=== PATIENT | male | born 2000 | race Caucasian/White ===

== ENCOUNTER 2022-12-18 08:24 | Emergency (ER) | payer OTHER, SELFPAY ==
[2022-12-18 08:43] VITALS: BP 133/89; PULSE 106; RESP 16; TEMP 37.3; O2SAT 97
--- NOTE | 2022-12-18 09:17 | ED.MALEGU ---
HPI - Male Genitourinary General Chief complaint: Urogenital-Male Stated complaint: genital issue Time Seen by Provider: 12/18/22 09:12 Source: patient and RN notes reviewed Mode of arrival: ambulatory Limitations: no limitations History of Present Illness HPI Narrative: Patient presents today complaining of bilateral testicular pain and swelling x3 days that has been progressively worsening since onset. Denies injury or trauma. Denies urinary symptoms to include dysuria, hematuria, urethral discharge. Denies concerns for sexually transmitted infections. States he has not had intercourse for some time. Currently rates his pain 7/10, which is worse when he sits. He has tried no feqa-rke-htujkni treatment prior to arrival. Related Data Allergies Allergy/AdvReac Type Severity Reaction Status Date / Time No Known Allergies Allergy Verified 12/18/22 08:46 Review of Systems Review of Systems: CONSTITUTIONAL: Denies body aches, fever, chills, or sweats. EYES: Denies visual changes, redness, or discharge. ENT: Denies rhinorrhea, congestion, sore throat, or otalgia. CARDIOVASCULAR: Denies chest pain, palpitations, or edema. RESPIRATORY: Denies cough or dyspnea. GASTROINTESTINAL: Denies abdominal pain, nausea, vomiting, or diarrhea. GENITOURINARY: Denies dysuria or hematuria.+ testicular pain SKIN: Denies rash, itching, or wounds. MUSCULOSKELETAL: Denies back pain, joint pain, or myalgia. NEUROLOGIC: Denies headache, numbness, tingling, or weakness. PSYCH: Denies depression or anxiety. [facility] Past Medical History Medical History (Updated 12/18/22 @ 09:26 by Luna Flores, CLEMENTE, ) Appendicitis Family History Family History Father Depression Hypertension Mother Hypertension Thyroid disease Sibling Depression Hypertension Sibling Depression Sibling No problems noted. Social History Social History Smoking packs per day: 0.5 Smoking cigarettes per day: 10.0 Years smoked: 2 Smoking pack-years: 1.00 Smoking status: Current every day smoker Tobacco type: e-cigarettes/vaping Alcohol intake: current Alcohol use details: socially Substance use: current Substance use type: marijuana Comments Reviewed Exam Narrative: GENERAL: Well-appearing, well-nourished, and in no acute distress. HEAD: Normocephalic, atraumatic. EYES: EOMI. No redness or drainage. Conjunctivae normal. ENT: Mucous membranes pink and moist. NECK: Normal AROM. CHEST: No respiratory distress. : Bilateral testicular tenderness, left greater than right with no swelling appreciated. No penile tenderness, swelling, or discharge noted. No genital lesions or rash noted. EXTREMITIES: Normal range of motion. No edema. SKIN: Warm, dry, no rash. Capillary refill normal. Normal skin turgor. NEURO: No focal deficits. Alert and oriented x3. Gait steady. PSYCH: Normal affect. No signs of depression or anxiety. Course Course Level of Care: Express Care Visit Vital Signs Vital signs: Vital Signs Temperature 99.1 F 12/18/22 08:43 Pulse Rate 106 H 12/18/22 08:43 Respiratory Rate 16 12/18/22 08:43 Blood Pressure 133/89 12/18/22 08:43 Pulse Oximetry 97 12/18/22 08:43 Oxygen Delivery Room Air 12/18/22 08:43 Temperature 99.1 F 12/18/22 08:43 Pulse Rate 106 H 12/18/22 08:43 Respiratory Rate 16 12/18/22 08:43 Blood Pressure 133/89 12/18/22 08:43 Pulse Oximetry 97 12/18/22 08:43 Oxygen Delivery Room Air 12/18/22 08:43 Reviewed Transfer Transfered to: [place] Transportation: Other (Private vehicle) Transfer rationale: Testicular pain Accepting physician: Jc MDM - Male Genitourinary MDM Narrative Medical decision making narrative: Due to patient's testicular tenderness, I feel it indicated to transfer him to the ER for higher l
== END 2022-12-18 09:24 | disposition short-term general hospital (02) ==
PROVIDERS: Emergency Provider Nurse Practitioner; PCP Physician Assistant
DX: N50.812 Left testicular pain (principal); N50.811 Right testicular pain; F17.290 Nicotine dependence, other tobacco product, uncomplicated
CPT/HCPCS: 99212; G0463

== ENCOUNTER 2022-12-18 15:22 | Emergency (ER) | payer OTHER, SELFPAY ==
--- NOTE | ~2022-12-18 | US_ITS ---
US scrotum doppler INDICATION: Bilateral testicular pain for 3 days TECHNIQUE: Testicular sonogram utilizing grayscale and color Doppler FINDINGS: The testes are normal in size and appearance. No focal lesions are seen. The right testes measures 4.4 x 2.5 x 4 cm centimeters, and the left testis measures 4.4 x 2.7 x 3 cm cm. There is inc reased vascularity in both testes. The right and left epididymides appear normal. There is no varicocele or hydrocele. IMPRESSION: 1. Symmetrically increased vascularity in both testes, suspicious for orchitis. Reviewed, dictated and finalized at location B. IMPRESSION: 1. Symmetrically increased vascularity in both testes, suspicious for orchitis .
[2022-12-18 15:53] VITALS: BP 135/88; PULSE 106; RESP 18; TEMP 36.8; O2SAT 100
[2022-12-18 16:55] LABS: Appearance Urine Clear (Clear); Bilirubin Urine Negative (Negative); Blood Urine Negative (Negative); Color Urine Yellow (Yellow); Glucose Urine UA Negative (Negative); Ketones Urine Negative (Negative); Leukocyte Esterase Ur Negative LEU/UL (Negative); Nitrate Urine Negative (Negative); Protein Urine Negative (Negative); Specific Grav Ur 1.011 (1.001-1.035); Urobilinogen Urine 0.2 mg/dL (<2.0)
[2022-12-18 17:15] LABS: Add Urine Microscopic? NO
--- NOTE | 2022-12-18 17:51 | PC.NURSE ---
provider exam with content writer present
--- NOTE | 2022-12-18 18:00 | ED.GENADULT ---
HPI - General Adult General Chief complaint: Urogenital-Male Stated complaint: testicular pain Time Seen by Provider: 12/18/22 15:57 History of Present Illness HPI narrative: 22-year-old male reports for evaluation for bilateral testicular pain and swelling x3 days. Patient describes the pain as a dull ache that is worse with movement and sitting down. He denies penile lesions or discharge, dysuria or hematuria, fever, vomiting, abdominal pain. He denies concern for STDs. Denies parotid swelling, recent mumps exposure. He is UTD on vaccines. Related Data Allergies Allergy/AdvReac Type Severity Reaction Status Date / Time No Known Allergies Allergy Verified 12/18/22 15:55 Review of Systems Review of Systems: CONSTITUTIONAL: Denies fever, chills EYES: Denies visual changes, redness, or discharge. ENT: Denies rhinorrhea, congestion, sore throat, or otalgia. CARDIOVASCULAR: Denies chest pain, palpitations, or edema. RESPIRATORY: Denies cough or dyspnea. GASTROINTESTINAL: Denies abdominal pain, nausea, vomiting, or diarrhea. GENITOURINARY: See HPI SKIN: Denies rash or itching. MUSCULOSKELETAL: Denies back pain, joint pain, or myalgia. NEUROLOGIC: Denies headache, numbness, dizziness, or weakness. PSYCHIATRIC: Denies anxiety or depression. [facility] Past Medical History Medical History (Updated 12/18/22 @ 18:07 by Cherrie Bustamante PA-C) Appendicitis Family History Family History Father Depression Hypertension Mother Hypertension Thyroid disease Sibling Depression Hypertension Sibling Depression Sibling No problems noted. Social History Social History Smoking packs per day: 0.5 Smoking cigarettes per day: 10.0 Years smoked: 2 Smoking pack-years: 1.00 Smoking status: Current every day smoker Tobacco type: e-cigarettes/vaping Alcohol intake: current Alcohol use details: socially Substance use: current Substance use type: marijuana Exam Narrative: GENERAL: Well-appearing, in no acute distress. Patient resting comfortably in exam bed. He is pleasant and conversational. HEAD: Normocephalic NECK: Supple. CHEST: No respiratory distress. Clear to auscultation, no adventitious breath sounds. HEART: Regular rate and rhythm. No murmur heard. Normal peripheral pulses. ABDOMEN: Soft, nontender, normal active bowel sounds : Testicles are low-lying. There is generalized tenderness to bilateral text Stickles and epididymis. No edema or erythema. No penile lesions or discharge. Normal cremasteric reflex bilaterally. EXTREMITIES: Normal range of motion. No edema. SKIN: Warm, dry, no rash. NEURO: No focal deficits. Alert and oriented x3. PSYCH: Normal mood and affect. Course Vital Signs Vital signs: Vital Signs Temperature 98.2 F 12/18/22 15:53 Pulse Rate 106 H 12/18/22 15:53 Respiratory Rate 18 12/18/22 15:53 Blood Pressure 135/88 12/18/22 15:53 Pulse Oximetry 100 12/18/22 15:53 Temperature 98.2 F 12/18/22 15:53 Pulse Rate 106 H 12/18/22 15:53 Respiratory Rate 18 12/18/22 15:53 Blood Pressure 135/88 12/18/22 15:53 Pulse Oximetry 100 12/18/22 15:53 Medical Decision Making MDM Narrative Medical decision making narrative: 22-year-old male reports for evaluation for bilateral testicular pain and swelling x3 days. Initial vitals reveal mild tachycardia 106, otherwise unremarkable. He is well-appearing on exam. Testicular exam significant for the above. Ultrasound obtained showing symmetrically increased vascularity in both testes suspicious for orchitis. Urinalysis is unremarkable. Chlamydia, gonorrhea and trichomonas test pending. Labs and imaging discussed with the patient. Plan to treat for orchitis with IM Rocephin and 14 days of doxycycline given age and last sexual encounter being 3 months ago. Saida
[2022-12-18] MEDS: DOXYCYCLINE HYCLATE 100 MG TABLET PO (18:23)
[2022-12-18] MEDS: LIDO 1%/EPINEPHRINE 1:100,000 50 ML VIAL (18:23)
[2022-12-18] MEDS: cefTRIAXone 1 GM VIAL 0.5 GM IM (18:23)
== END 2022-12-18 18:27 | disposition home or self-care (01) ==
PROVIDERS: Emergency Provider Physician Assistant; PCP Physician Assistant
DX: N45.2 Orchitis (principal); F17.290 Nicotine dependence, other tobacco product, uncomplicated
CPT/HCPCS: 76870; 81003; 87491; 87591; 87661; 93976; 96372; 99284; A9270; J0696

== ENCOUNTER 2023-09-19 14:02 | Outpatient (CLI) | payer OTHER, SELFPAY ==
[2023-09-19 12:43] LABS: Basophils Percent Auto 0.8 % (0.2-1.2); Eosinophils Percent Auto 0.4 % (0-4.4); Hematocrit 43.4 % (42.0-52.0); Hemoglobin 15.2 g/dL (14.0-18.0); Immature Granulocyte Absolute 0.02 K/mm3 (0.00-0.031); Immature Granulocyte Percent A 0.4 % (0-0.5); Immature Platelet Fraction Pct 2.2 % (0.9-11.2); Lymphocytes Absolute Auto 0.86 K/mm3 (0.9-3.2); Lymphocytes Percent Auto 18.1 % (18.3-44.2); Mean Corpuscular Hemoglobin 31.2 pg (26-34); Mean Corpuscular Volume 89.1 fl (80-100); Mean Platelet Volume 8.5 fl (7.4-10.4); Monocytes Absolute Auto 0.5 K/mm3 (0.1-0.6); Monocytes Percent Auto 10.3 % (2.6-8.5); Neutrophils Absolute Auto 3.3 K/mm3 (1.3-6.7); Platelet Count Result 98 k/mm3 (150-375); Red Blood Count 4.87 M/mm3 (4.6-6.20); Red Cell Distribution Width 12.9 % (11.5-14.5); White Blood Count 4.8 K/mm3 (4.5-10.0)
[2023-09-19 12:53] LABS: Alanine Aminotransferase 175 U/L (6-50); Albumin Level 5.4 g/dL (3.5-5.1); Alkaline Phosphatase 78 U/L (38-126); Anion Gap 15 mmol/L (4-12); Aspartate Amino Transferase 499 U/L (17-59); Bilirubin,Total 1.6 mg/dL (0.2-1.3); Blood Urea Nitrogen 7 mg/dL (9-20); Calcium 9.2 mg/dL (8.4-10.2); Carbon Dioxide 29 mmol/L (22-30); Chloride 97 mmol/L (98-107); Estimated Glomerular Filt Rate > 60; Glucose 103 mg/dL (65-110); Potassium 4.2 mmol/L (3.4-5.0); Sodium 141 mmol/L (137-145)
[2023-09-19 12:57] LABS: Monoscreen Negative (Negative); Negative Monotest Control Negative (Negative); Positive Monotest Control Positive (Positive)
[2023-09-19 15:54] LABS: Hepatitis B Surface Antigen Negative (Negative)
[2023-09-19 16:00] LABS: HAV RESULT Negative (Negative); Hepatitis B Core IgM Result Negative (Negative)
[2023-09-19 16:11] LABS: Hepatitis C Virus Antibody Negative (Negative)
== END 2023-09-19 14:03 | disposition home or self-care (01) ==
PROVIDERS: PCP Physician Assistant; Visit Provider Internal Medicine
DX: R79.89 Other specified abnormal findings of blood chemistry (principal); R53.83 Other fatigue
CPT/HCPCS: 36415; 80053; 80074; 84443; 85025; 85055; 86308

== ENCOUNTER 2023-09-21 10:27 | Outpatient (CLI) | payer OTHER, SELFPAY ==
[2023-09-23 07:48] LABS: Protein, Total 7.9 g/dL (6.1-8.1)
[2023-09-24 12:03] LABS: Immunoglobulin G, Serum 646 mg/dL (600-1640); Immunoglobulin G1 401 mg/dL (382-929); Immunoglobulin G2 129 mg/dL (241-700); Immunoglobulin G3 28 mg/dL (22-178); Immunoglobulin G4 3.3 mg/dL (4.0-86.0)
[2023-09-26 12:38] LABS: Albumin 5.3 g/dL (3.8-4.8); Alpha 1 Globulin 0.5 g/dL (0.2-0.3); Alpha 2 Globulin 0.7 g/dL (0.5-0.9); Beta 1 Globulin 0.6 g/dL (0.4-0.6); Gamma Globulin 0.7 g/dL (0.8-1.7)
[2023-09-28 06:40] LABS: Actin Antibody (IgG) <20 U (<20)
[2023-10-04 10:33] LABS: Mitochondrial (M2) Ab (IgG) <20.0 U
== END 2023-09-21 10:28 | disposition home or self-care (01) ==
PROVIDERS: PCP Physician Assistant; Visit Provider Internal Medicine
DX: R79.89 Other specified abnormal findings of blood chemistry (principal); R77.9 Abnormality of plasma protein, unspecified
CPT/HCPCS: 36415; 82784; 82787; 83520; 84155; 84165; 86038; 86039; 86364

== ENCOUNTER 2024-07-23 13:56 | Outpatient (CLI) | payer OTHER, SELFPAY ==
--- OUTSIDE RECORDS SUMMARY | 2024-07-23 15:06 | XMS_ITS | Clinical Summary ---
Author Organization [facility] Address [address] [place] [id number] Care Team Providers Care Continuous Wave Operator Name Role Phone Unavailable Primary Care Provider Unavailabl e Social History Tobacco Use Types Packs/Day Years Used Date Smoking Tobacco: Never Assessed Sex and Gender Information Value Date Recorded Sex Assigned at Not on file Legal Sex Male 6:10 PM CDT Gender Identity Not on file Sexual Orientation Not on file Plan of Treatment Health Maintenance Due Date Last Done Comments Annual Physical 2004 HPV Vaccines (1 - Male 3-dos e series) 2016 Meningococcal B Vaccine (1 o f 2 - Standard) 2017 Hepatitis C 11/23/2019 DTaP, Tdap and Td Vaccines ( 1 - Tdap) 2020 Hepatitis B Vaccines (1 of 3 - 19+ 3-dose series) 2020 COVID-19 Vaccine (1 - 2023-2 5 season) 2023 Influenza Adult (#1) 2024 Meningococcal Vaccine Aged Out No asaf laura eligible based on patient's age to complete this topic Pneumococcal Vaccine: Pediat rics (0 to 5 Years) and At-Risk Patients (6 to 64 Years) Aged Out No longer eligible b ased on patient's age to complete this topic RSV Immunizations Under 20 Months Aged Out No longer eligible based on patient's age to complete this topic
--- OUTSIDE RECORDS SUMMARY | 2024-07-23 15:06 | XMS_ITS | Clinical Summary ---
Author Organization [facility] Address [address] [place] [id number] Care Team Providers Care Chief Yeoman Name Role Phone No, Physician Primary Care Provider [phone] Allergies No known active allergies Medications cholecalciferol (VITAMIN D-3) 5,000 unit capsule Take 1 capsule (5,000 Units total) by mouth daily 30 capsule 12/26/2023 Active traZODone (DESYREL) 50 mg tablet Take 1 tablet (50 mg total) by mouth nightly as needed for sleep 12/26/2023 Active Active Problems Problem Noted Date Diagnosed Date Alcohol withdrawal syndrome with complication Abdominal pain 08/30/2011 Elevated alanine aminotransferase (ALT) level Elevated aspartate aminotransferase level 2011 Surgical History Surgery Date Site/Laterality Comments APPENDECTOMY Appendectomy - 08/08/11 (Added by TW Conv) APPENDECTOMY Laparoscopic Appendectomy - (Added by TW Conv) Medical History Medical History Date Comments Acute appendicitis Acute appendi citis - (Added by TW Conv) Family History Medical History Relation Name Comments ADD / ADHD Brother Attention-defic it Hyperactivity Disorder - (Added by TW Conv) Hypertension Father Hypertension - (Added by TW Conv) Cholelithiasis Mother Cholelithiasi s - (Added by TW Conv) Hypertension Mother Hypertension - (Added by TW Conv) Cancer Other Cancer - under age of 50 - grandparent (Added by TW Conv) Diabetes Other Diabetes Mellit us - - grandfather (Added by TW Conv) Relation Name Status Comments Brother Father Mother Other Social History Tobacco Use Types Packs/Day Years Used Date Smoking Tobacco: Former Cigarettes Q uit: 2023 Smokeless Tobacco: Never Tobacco Cessation:Counseling Given: Not Answered [facility] Utilities Answer Date Recorded In the past 12 months has th e electric, gas, oil, or water company threatened to shut off services in your home? No 12/24/2023 Social Connection and Isolat ion Panel [NHANES] Answer Date Recorded In a typical week, how many times do you talk on the phone with family, friends, or neighbors? More than three times a week 12/24/2023 How often do you get togethe r with friends or relatives? More than three times a week 12/24/2023 How often do you attend chur ch or jain services? Never 12/24/2023 Do you belong to any clubs o r organizations such as judaism groups, unions, fraternal or athletic groups, or school groups? No 12/24/2023 How often do you attend meet ings of the clubs or organizations you belong to? Never 12/24/2023 Are you , , di vorced, , never , or living with a partner? Never 12/24/2023 Overall Financial Resource Strain (CARDIA) Answe r Date Recorded How hard is it for you to pa y for the very basics like food, housing, medical care, and heating? Not very hard 12/24/2023 Hunger Vital Sign Answer Date Recorded Within the past 12 months, y ou worried that your food would run out before you got the money to buy more. Never true 12/24/19 24 Within the past 12 months, t he food you bought just didn't last and you didn't have money to get more. Never true 12/24/2023 PRAPARE - Transportation Answer Date Re corded In the past 12 months, has l ack of transportation kept you from medical appointments or from getting medications? No 11/29 In the past 12 months, has l ack of transportation kept you from meetings, work, or from getting things needed for daily living? No 12/24/2023 Housing Stability Vital Sign Answer Yeyo e Recorded In the last 12 months, was t here a time when you were not able to pay the mortgage or rent on time? No 12/24/2023 In the past 12 months, how m any times have you moved where you were living? 0 12/24/2023 At any time in the past 12 m [facility], were you homeless or living in a senior living (including now)? No 12/24/2023 Personal Safety Answer Date Recorded Have you ever been in or are you currently in a harmful physical or emotional relationship or is someone making you feel afraid or unsafe? 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 Gender Identity Not on file Sexual Orientation Not on file Obstetrics History Last Filed Vital Signs Vital Sign Reading Time Taken Comments Blood Pressure 146/98 12/26/2023 8:02 AM CDT Pulse 93 12/26/2023 8:02 AM CDT Temperature 36.9 C (98.4 F) 12/26/2023 8:02 AM CDT Respiratory Rate 18 12/26/2023 8:02 AM CDT Oxygen Saturation 100% 12/26/2023 8:02 AM CDT Inhaled Oxygen Concentration - - Weight 69.7 kg (153 lb 9.6 oz) 12/26/2023 5:14 A M CDT Height 170.2 cm (5' 7 ) 12/24/2023 2:49 AM CDT 1 67.6 Body Mass Index 24.06 12/24/2023 2:49 AM CDT Plan of Treatment Health Maintenance Due Date Last Done Comments Depression Screening 2001 Hepatitis C Screening 2001 Regular Well Visit/Exam 18-64 11/23/2019 DTaP/Tdap/Td Vaccine (7 - Td or Tdap) 11/29/2022 11/29/2012, 10/19/2006, 12/04/2003, Additional history exists Covid-19 Vaccine (3 - 2023-2 5 season) 2023 08/20/2020, 07/27/2020 Influenza Vaccine (#1) 2023 8, 01/12/2016, 03/23/2014, Additional history exists Hepatitis B Screening Completed 12/08/2002 , 03/25/2002, 01/24/2002 Pneumococcal vaccine <65 Completed 003, 06/18/2002, 03/25/2002, Additional history exists Varicella Vaccines Completed 10/19/2006, 02/20/2003 HPV Vaccines Completed 01/12/2016, 05/01, 03/23/2014, Additional history exists Meningococcal B Vaccine Completed 12/27/2017, 11/26 Insurance [facility] Advance Directives For more information, please contact: [phone] * Full Code (Latest Code Status on File) Date Activated Date Inactivated Comments 12/24/2023 3:14 AM 12/26/2023 4:21 PM Care Teams Chief Yeoman Relationship Specialty Start Date End Date No, Physician PCP - General 12/23/23
--- OUTSIDE RECORDS SUMMARY | 2024-07-23 15:06 | XMS_ITS | Referral Summary ---
Author Organization [facility] Address [address] [place] [id number] Care Team Providers Care Production Control Clerk Name Role Phone No, Physician Primary Care Provider [phone] Allergies No known active allergies Medications cholecalciferol [...] (ALT) level Elevated aspartate aminotransferase level 2011 Social History Tobacco Use Types Packs/Day Years Used Date Smoking Tobacco: Former Cigarettes Q uit: 2023 Smokeless Tobacco: Never Tobacco Cessation:Counseling Given: Not Answered [facility] Utilities Answer Date Recorded In the past 12 months has [employer], oil, or water [employer] threatened to shut off services in your [...] 12/24/2023 How often do you attend chur or christian services? Never 12/24/2023 Do you belong to any clubs o r organizations such as anglican groups, unions, fraternal or athletic groups, or [...] any time in the past 12 m [facility], were you homeless or living in a long term (including now)? No 12/24/2023 Personal Safety Answer Date Recorded Have you ever been in or are you currently in a harmful physical or emotional relationship or is someone making you feel afraid or unsafe? 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
--- OUTSIDE RECORDS SUMMARY | 2024-07-23 15:06 | XMS_ITS | Clinical Summary ---
Author Organization [facility] Address [address] [place] [address] Care Team Providers Care Executive Producer [employer] Name Role Phone Lele Delgadillo MD Primary Care Provider Source Comments Affirm [facility],non-owned Affiliates and Associated Physician Practices is amultiple site organization consisting of ambulatory clinics and hospital sitesin [place], [place], [place] and [place]. This disclosure is being madepursuant to the Care Everywhere program and may not contain all information available regarding this patient. Last updated 18.[employer] Allergies No known active allergies Medications Be aware that medications may not be up to date on this document. Always verify current medications with the patient. 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 Pulse 92 05/14/2016 2:17 PM VOCATIONAL TRAINING INSTRUCTOR Temperature 36.7 C (98.1 F) 05/14/2016 2:17 PM VOCATIONAL TRAINING INSTRUCTOR Respiratory Rate 16 05/14/2016 2:17 PM VOCATIONAL TRAINING INSTRUCTOR Oxygen Saturation - - Inhaled Oxygen Concentration - - Weight 74.3 kg (163 lb 12.8 oz) 05/14/2016 2:17 PM VOCATIONAL TRAINING INSTRUCTOR Height - - Body Mass Index - - Plan of Treatment Health Maintenance Due Date Last Done Comments HIV SCREENING 2016 HPV VACCINE (1 - Male 3-dose series) 2016 MENINGOCOCCAL (Group B) VACC INE SHARED DECISION-MAKING (1 of 2 - Standard) 2017 HEPATITIS C SCREENING 11/18/2019 DTAP/TDAP/TD VACCINES (1 - Tdap) 2020 HEPATITIS B VACCINE (1 of 3 - 19+ 3-dose series) 2020 COVID-19 VACCINE (1 - 2023-2 5 season) 2023 INFLUENZA VACCINE (#1) 2023 DEPRESSION SCREENING 04/30/2024 ZOSTER VACCINE (1 of 2) 11/23/2051 HIB VACCINE Aged Out No longer eligi ble based on patient's age to complete this topic MENINGOCOCCAL GROUPS A/C/Y/W VACCINE Aged Out No longer eligible b ased on patient's age to complete this topic PNEUMOCOCCAL VACCINE Aged Out No long er eligible based on patient's age to complete this topic Care Teams Executive Producer Promos Relationship Specialty Start Date End Date Lele Delgadillo MD [facility] [place] [id number] PCP - General Pediatrics 05/14/16
[2024-07-23 15:14] LABS: Syphilis IgG/IgM Antibody Negative (Negative)
[2024-07-23 15:25] LABS: HIV 1/2 Ab P24 Ag Result Negative (Negative)
== END 2024-07-23 13:57 | disposition home or self-care (01) ==
LOC: ANHLAB 13:57
PROVIDERS: PCP Internal Medicine; Visit Provider Internal Medicine
DX: Z20.2 Contact with and (suspected) exposure to infections with a predominantly sexual mode of transmission (principal)
CPT/HCPCS: 36415; 86593; 86695; 86696; 86703; G0432

== ENCOUNTER 2024-12-12 17:47 | Emergency (ER) | payer OTHER, SELFPAY ==
--- OUTSIDE RECORDS SUMMARY | 2024-12-12 17:49 | XMS_ITS | Clinical Summary ---
Author Organization [facility] Address [address] [place] [id number] Care Team Providers Care Cloth Finishing Range Operator Chief Name Role Phone Unavailable Primary Care Provider [...] Vaccine (1 - 2023-2 5 season) 2023 Meningococcal Vaccine Aged Out No asaf laura eligible based on patient's age to complete this topic Pneumococcal Vaccine: Pediat rics (0 to 5 Years) and At-Risk Patients (6 to 49 Years) Aged Out No longer eligible b ased on patient's age to complete this topic RSV Immunizations Under 20 Months Aged Out No longer eligible based on patient's age to complete this topic
--- OUTSIDE RECORDS SUMMARY | 2024-12-12 17:49 | XMS_ITS | Clinical Summary ---
Author Organization [facility] Address [address] [place] [phone] Care Team Providers Care Glaucoma Specialist Name Role Phone No, Physician Primary Care Provider [phone] Allergies No known active allergies Medications cholecalciferol [...] Tobacco: Never Tobacco Cessation:Counseling Given: Not Answered [facility] Utilities Answer Date Recorded In the past 12 months has th e electric, gas, oil, or water company threatened to shut off services in your home? No 12/24/2023 Social Connection and Isolation Panel Answer Date Recorded In a typical week, how many times do you talk on the phone with family, friends, or neighbors? More than three times a week 12/24/2023 How often do you get togethe r with friends or relatives? More than three times a week 12/24/2023 How often do you attend chur ch or judaism services? Never 12/24/2023 Do you belong to any clubs o r organizations such as christian groups, unions, fraternal or athletic groups, or [...] time in the past 12 m [facility], were you homeless or living in a residential (including now)? No 12/24/2023 Personal Safety Answer Date Recorded Have you ever been in or are you currently in a harmful physical or emotional relationship or is someone making you feel afraid or unsafe? 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 Gender Identity Not on file Sexual Orientation [...] A M CDT Height 170.2 cm (5' 7) 12/24/2023 2:49 AM CDT 1 67.6 Body Mass Index 24.06 12/24/2023 2:49 AM CDT Plan of Treatment Health Maintenance Due Date Last Done Comments Depression Screening 2001 Hepatitis C Screening 2001 Regular Well Visit/Exam 18-64 11/23/2019 DTaP/Tdap/Td Vaccine (7 - Td or Tdap) 11/29/2022 11/29/2012, 10/19/2006, 12/04/2003, Additional history exists Covid-19 Vaccine (3 - 2023-2 5 season) 2023 08/20/2020, 07/27/2020 Influenza Vaccine (#1) 2024 8, 01/12/2016, 03/23/2014, Additional history exists Hepatitis B Screening Completed 12/08/2002 , 03/25/2002, 01/24/2002 Pneumococcal vaccine <65 Completed 003, 06/18/2002, 03/25/2002, Additional history exists Varicella Vaccines Completed 10/19/2006, 02/20/2003 HPV Vaccines Completed 01/12/2016, 05/01, 03/23/2014, Additional history exists Meningococcal B Vaccine Completed 12/27/2017, 11/26 Insurance [facility] H[facility]/PPO Address: [facility] [address] [place] [address] Advance Directives For more information, please contact: [phone] * Full Code (Latest Code Status on File) Date Activated Date Inactivated Comments 12/24/2023 3:14 AM 12/26/2023 4:21 PM Care Teams Glaucoma Specialist Relationship Specialty Start Date End Date No, Physician PCP - General 12/23/23
--- OUTSIDE RECORDS SUMMARY | 2024-12-12 17:49 | XMS_ITS | Clinical Summary ---
Author Organization [facility] [employer] Address [address] [place] [address] Care Team Providers Care Shaft Sinker Name Role Phone Lele Delgadillo MD Primary Care Provider Source Comments Done.,non-owned Affiliates and Associated Physician Practices is amultiple site organization consisting of ambulatory clinics and hospital sitesin [place], [place], [place] and [place]. This disclosure is being madepursuant to the Care Everywhere program and may not contain all information available regarding this patient. Last updated 18.Done. Allergies No known active allergies Medications * Be aware that medications may not be up to date on this document. Alwaysverify current medications with the patient. 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 Gender Identity Not on file Sexual Orientation Not on file Last Filed Vital Signs Vital Sign Reading Time Taken Comments Blood Pressure 118/72 05/14/2016 2:17 PM INSULATION BLOWER Pulse 92 05/14/2016 2:17 PM INSULATION BLOWER Temperature 36.7 C (98.1 F) 05/14/2016 2:17 PM INSULATION BLOWER Respiratory Rate 16 05/14/2016 2:17 PM INSULATION BLOWER Oxygen Saturation - - Inhaled Oxygen Concentration - - Weight 74.3 kg (163 lb 12.8 oz) 05/14/2016 2:17 PM INSULATION BLOWER Height - - Body Mass Index - [...] VACCINE (1 - 2023-2 5 season) 2023 DEPRESSION SCREENING 04/30/2024 INFLUENZA VACCINE (#1) 2024 ZOSTER VACCINE (1 of 2) 11/23/2051 HIB VACCINE Aged Out No longer eligi ble based on patient's age to complete this topic MENINGOCOCCAL GROUPS A/C/Y/W VACCINE Aged Out No longer eligible b ased on patient's age to complete this topic PNEUMOCOCCAL VACCINE Aged Out No long er eligible based on patient's age to complete this topic Insurance [facility] Care Teams Shaft Sinker Relationship Specialty Start Date End Date Lele Delgadillo MD [facility] [place] [phone] PCP - General Pediatrics 05/14/16
--- OUTSIDE RECORDS SUMMARY | 2024-12-12 17:50 | XMS_ITS | Continuity of Care Document ---
Author Organization [employer] Address [address] [place] [address] [place] [phone] Phone Care Team Providers Care Blending Coordinator Name Role Phone Jc Valdes Unavailable Unavailable Procedures Procedure Date Therapeutic Activities Neuromuscular Re-Ed Therapeutic Exercise Manual Therapy Therapeutic Activities Neuromuscular Re-Ed Therapeutic Exercise Manual Therapy Hot or Cold Pack Therapeutic Activities Neuromuscular Re-Ed Therapeutic Exercise Manual Therapy Hot or Cold Pack Progress Note Therapeutic Activities Neuromuscular Re-Ed Therapeutic Exercise Manual Therapy Hot or Cold Pack Therapeutic Activities Neuromuscular Re-Ed Therapeutic Exercise Manual Therapy Hot or Cold Pack Therapeutic Activities Neuromuscular Re-Ed Therapeutic Exercise Manual Therapy Hot or Cold Pack Therapeutic Activities Neuromuscular Re-Ed Therapeutic Exercise Manual Therapy Therapeutic Activities Neuromuscular Re-Ed Therapeutic Exercise Manual Therapy Hot or Cold Pack Therapeutic Activities Neuromuscular Re-Ed Hot or Cold Pack Therapeutic Exercise Manual Therapy Therapeutic Activities Neuromuscular Re-Ed Therapeutic Exercise Hot or Cold Pack Manual Therapy Therapeutic Activities Neuromuscular Re-Ed Therapeutic Exercise Manual Therapy Hot or Cold Pack Therapeutic Activities Neuromuscular Re-Ed Manual Therapy Therapeutic Exercise Hot or Cold Pack Therapeutic Activities Neuromuscular Re-Ed Therapeutic Exercise Manual Therapy Therapeutic Activities Neuromuscular Re-Ed Manual Therapy Therapeutic Exercise Therapeutic Activities Neuromuscular Re-Ed Therapeutic Exercise Hot or Cold Pack Manual Therapy Progress Note Therapeutic Activities Neuromuscular Re-Ed Therapeutic Exercise Manual Therapy Therapeutic Activities Neuromuscular Re-Ed Manual Therapy Therapeutic Exercise Therapeutic Activities Neuromuscular Re-Ed Manual Therapy Therapeutic Exercise Therapeutic Activities Neuromuscular Re-Ed Therapeutic Exercise Manual Therapy Therapeutic Activities Therapeutic Exercise Neuromuscular Re-Ed Manual Therapy PT Evaluation Low Complexity Therapeutic Activities Therapeutic Exercise Manual Therapy Advance Directives Directive Yes / No Effective Date File Name No Information Encounters Encounter Description Practice Location Reason(s) For Visit Diagnoses Date Provider Providers Copied on Encounter [facility] [address] [address], [place], [place], [id number], tel:[phone] [place] No Information Feb-2 4 Dennis Greene. [address] [place] [address], [address], [place], [place], [facility], . tel:[phone] Referring Provider: Access Direct. [facility] [address] [address], [place], [place], [id number], tel:[phone] [place] No Information b-2 4 Jeffy Luciano. [address] [place] [address], [address] [address], . tel:[phone] Referring Provider: Access Direct. [facility] [address] [address], [place], [place], [id number], tel:[phone] [place] No Information b-1 4 Jeffy Luciano. [address] [place] [address], [address] [address], . tel:[phone] Referring Provider: Access Direct. [facility] [address] [address], [place], [place], [id number], tel:[phone] [place] No Information b1 4 Jeffy Luciano. [address] [place] [address], [address] [address], . tel:[phone] Referring Provider: Access Direct. [facility] [address] [facility] [address], [place], [place], [id number], tel:[phone] [place] No Information Feb-0 4 Jeffy Luciano. [address] [place] [address], [address], [place], [place], [facility], [place]. tel:[phone] Referring Provider: Access Direct. [facility] [address] [facility] [address], [place], [place], [id number], tel:[phone] [place] No Information 4 Jeffy Luciano. [address] [place] [address], [address], [place], [place], [facility], [place]. tel:[phone] Referring Provider: Access Direct. [facility] [address] [facility] [address], [place], [place], [id number], [place] tel:[phone] [place] No Information 4 Vicenta Muñoz . Referring Provider: Access Direct. [facility] [address] [facility] [address], [place], [place], [id number], tel:[phone] [place] No Information 4 Jeffy Luciano. [address] [place] [address], [address], [place], [place], [facility], [place]. tel:[phone] Referring Provider: Access Direct. [facility], [address] [facility] [address], [place], [place], [id number], [place] tel:[phone] [place] No Information 4 Muehl Cj. [address] [place] [address], [address], [place], [place], [facility], [place]. tel:[phone] Referring Provider: Access Direct. [facility] [address] [facility] [address], [place], [place], [id number], [place] tel:[phone] [place] No Information 4 Muehl Jc. [address] [place] [address], [address], [place], [facility], [place]. tel:[phone] Referring Provider: Access Direct. [facility] [address] [facility] [address], [place], [place], [id number], [place] tel:[phone] [place] No Information 4 Jeffy Luciano. [address] [place] [address], [address], [place], [facility], . tel:[phone] Referring Provider: Access Direct. [facility] [address] [address], [place], [place], [id number], tel:[phone] [place] No Information 4 Jeffy Luciano. [address] [place] [address], [address], [place], [place], [facility], . tel:[phone] Referring Provider: Access Direct. [facility] [address] [address], [place], [place], [id number], tel:[phone] [place] No Information 4 Dellamano Juvencio. . Referring Provider: Access Direct. [facility] [address] [address], [place], [place], [id number], tel:[phone] [place] No Information 4 Dellamano Juvencio. . Referring Provider: Access Direct. [facility] [address] [address], [place], [place], [id number], tel:[phone] [place] No Information 4 Mucarmen Greene. [address] [place] [address], [address], [place], [place], [facility], . tel:[phone] Referring Provider: Access Direct. [facility] [address], [place], [place], [id number], tel:[phone] [place] No Information 3 Dellamano Juvencio. . Referring Provider: Access Direct. [facility] [address] [address], [place], [place], [id number], tel:[phone] [place] No Information 3 Dellamano Juvencio. . Referring Provider: Access Direct. [facility] [address], [place], [place], [id number], tel:[phone] [place] No Information 3 Delkeila Henning. . Referring Provider: Access Direct. [facility] [address], [place], [place], [id number], tel:[phone] [place] No Information 3 Dellamchristie Henning. . Referring Provider: Access Direct. [facility] [address] [address], [place], [place], [id number], tel:[phone] [place] No Information 3 Dellamchristie Henning. . Referring Provider: Access Direct. [facility] [address] [address], [place], [place], [id number], tel:[phone] [place] No Information 3 Modglin Luis. . Referring Provider: [facility]. Family History Family Member Type Diagnosis Age At Onset No Information Payers Payer name Insurance type Covered green party ID Jake hernandez(s) Pawan JOHNSON 00 Social History Type Description Quantity Date Captured Comments Sex Male Smoking Status No Information Chief Complaint And Reason For Visit No Information Reason For Referral Reason For Referral No Information History Of Present Illness Encounter Date Complaint History Of Prese nt Illness No Information Functional Status Date Functional Assessmen t No Information Instructions Date Instruction Additional Infor mation Giving encouragement to exercise Related to Overweight Giving encouragement to exercise Related to Overweight Assessments Type Assessment Date No Information Patient Care Teams Name Effective Dates (start - stop) Status Members No Information
[2024-12-12 17:52] VITALS: BP 137/94; PULSE 114; RESP 16; TEMP 36.7; O2SAT 98
[2024-12-12 18:03] VITALS: BP 137/94; PULSE 113; RESP 19; TEMP 36.7; O2SAT 98
[2024-12-12 18:06] VITALS: PULSE 117
--- NOTE | 2024-12-12 18:12 | ED_ITS ---
HPI - General Adult General Chief complaint: Unspecified Stated complaint: DRUNK, RECTAL BLEEDING Time Seen by Provider: 12/12/24 17:53 History of Present Illness HPI narrative: This is a 24-year-old male with history of alcoholism and alcohol withdrawal seizures who presents ED for concerns for GI bleed and alcohol intoxication. Per family, patient has relapsed on alcohol again. He was last in rehab about 3 months ago. He did get a DUI last week. He apparently was having some diarrhea today and had some bloody stools in the toilet prompting them to bring him in for further evaluation. Patient denies any nausea, vomiting, abdominal pain. No history of hemorrhoids. Denies any rectal pain. He states his last drink was last night. Parents state that they believe he has been drinking more today. Mom did find an empty 5th of whiskey in his room. Patient denies any drug use. Related Data Allergies Allergy/AdvReac Type Severity Reaction Status Date / Time No Known Allergies Allergy Verified 12/12/24 18:08 Review of Systems 2 Review of Systems: Gen.: Denies fevers or chills Eyes: Denies eye pain or visual change ENT: Denies congestion Respiratory: Denies shortness of breath or cough CV: Denies chest pain or palpitations GI: Diarrhea. Denies abdominal pain nausea, emesis. denies burning, urgency, frequency or hematuria Musculoskeletal: Denies back pain or muscle pain Neuro: Denies numbness, tingling, weakness or focal weakness Skin: Denies rash Except as documented, all other systems reviewed and negative [facility] Past Medical History Medical History BMI 27.0-27.9,adult Alcohol abuse Appendicitis Family History Family History Father Depression Hypertension Diabetes mellitus Mother Hypertension Thyroid disease Diabetes mellitus Sibling Depression Hypertension Social History Social History Smoking packs per day: 0.5 Smoking cigarettes per day: 10.0 Years smoked: 2 Smoking pack-years: 1.00 Smoking status: Current every day smoker Tobacco type: e-cigarettes/vaping Second hand tobacco smoke exposure: No Alcohol intake: current Substance use: former Substance use type: marijuana Do You Feel Safe in your Home?: Yes Lack of Transportation: No Lack of Food: Never True Current Housing: I Have Housing Concerned About Future Housing: No Difficulty Paying Gas/Electric Bills: No Difficulty Paying for Meds: No Currently Unemployed: No Education: High School Diploma/GED Difficulty w/ Childcare or Family Care: No Living arrangements: with family Occupation/Education: occupation 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 CARDIOVASCULAR: Regular rate and rhythm without murmurs rubs or gallops. ABDOMINAL: Soft, nontender, nondistended, no rebound or guarding : No hemorrhoids, no anal fissures. Red appearing stool sample but guaiac negative. MUSCULOSKELETAL: Moves all extremities. No clubbing, cyanosis or edema. NEURO: Awake and alert. Slurring speech. Following commands, speech normal, no focal deficits SKIN:: Warm, dry. No rashes lesions or abrasions PSYCHIATRIC: Normal affect/mood, Course Vital Signs Vital signs: Vital Signs Temperature 98.1 F 12/12/24 17:52 Pulse Rate 114 H 12/12/24 17:52 Respiratory Rate 16 12/12/24 17:52 Blood Pressure 137/94 H 12/12/24 17:52 Pulse Oximetry 98 12/12/24 17:52 Oxygen Delivery Room Air 12/12/24 17:52 Temperature 98.1 F 12/12/24 18:03 Pulse Rate 117 H 12/12/24 18:06 Respiratory Rate 19 12/12/24 18:03 Blood Pressure 137/94 H 12/12/24 18:03 Pulse Oximetry 98 12/12/24 18:03 Oxygen Delivery Room Air 12/12/24 17:52 Medical Decision Making MDM Narrative Medical decision making narrative: 24 yo male presenting to the ED for alcohol intoxication and concerns for GI bleed. PAtient was slurring his words on evaluation. VSS. Rectal exam did reveal red appearing stool, but guaiac negative. After further discussion with family, patient had been drinking red gatorade throughout the day and was having diarrhea. Suspect that the bloody BM he saw was more likely red dye stained stools. CBC showed no anemia. He did have evidence of likely alcoholic hepatitis. Alcohol 381. I had a long discussion with patient and family separately about the importance of alcohol cessation and the damage to his liver. Patient expressed his understanding. They will seek detox and rehab at one of the facilities he has been to previously. Family is very reliable in my opinion. PAtient will be given a prescription for zofran to manage nausea. Patient and family agreeable to this plan. Given strict return precautions. Differential Diagnosis Differential Diagnosis: alcohol intoxication, GI bleed, electrolyte abnormality, drug intoxication Medical Records Medical records reviewed: Yes I reviewed the external patient's medical records. Vital Signs Vital Signs: Vital Signs Temperature 98.1 F 12/12/24 17:52 Pulse Rate 114 H 12/12/24 17:52 Respiratory Rate 16 12/12/24 17:52 Blood Pressure 137/94 H 12/12/24 17:52 Pulse Oximetry 98 12/12/24 17:52 Oxygen Delivery Room Air 12/12/24 17:52 Temperature 98.1 F 12/12/24 18:03 Pulse Rate 117 H 12/12/24 18:06 Respiratory Rate 19 12/12/24 18:03 Blood Pressure 137/94 H 12/12/24 18:03 Pulse Oximetry 98 12/12/24 18:03 Oxygen Delivery Room Air 12/12/24 17:52 Lab Data Lab results reviewed: Yes I reviewed the patient's lab results. 12/12/24 18:22 12/12/24 18:22 Labs: Lab Results 12/12/24 12/12/24 Range/Units 18:22 19:04 WBC 7.2 (4.5-10.0) K/mm3 RBC 5.54 (4.6-6.20) M/mm3 Hgb 16.5 (14.0-18.0) g/dL Hct 45.8 (42.0-52.0) % MCV 82.7 (80-100) fl MCH 29.8 (26-34) pg MCHC 36.0 (32-36) g/dl RDW 11.9 (11.5-14.5) % Plt Count 270 D (150-375) k/mm3 MPV 9.2 (7.4-10.4) fl Immature Gran % (Auto) 0.3 (0-0.5) % Neut % (Auto) 57.4 (45.5-73.1) % Lymph % (Auto) 26.3 (18.3-44.2) % Pershing % (Auto) 15.2 H (2.6-8.5) % Eos % (Auto) 0.4 (0-4.4) % Baso % (Auto) 0.4 (0.2-1.2) % Lymph # (Auto) 1.90 (0.9-3.2) K/mm3 Pershing # (Auto) 1.1 H (0.1-0.6) K/mm3 Eos # (Auto) 0.0 (0-0.3) K/mm3 Baso # (Auto) 0.0 (0.0-0.1) K/mm3 Abs Immat Gran (auto) 0.02 (0.00-0.031) K/mm3 Absolute Neuts (auto) 4.1 (1.3-6.7) K/mm3 Absolute Nucleated RBC 0.000 (0.0-0.012) K/mm3 Nucleated RBC % 0.0 (0.0-0.2) % Sodium 140 (137-145) mmol/L Potassium 3.2 L (3.4-5.0) mmol/L Chloride 102 (98-107) mmol/L Carbon Dioxide 27 (22-30) mmol/L Anion Gap 11 (4-12) mmol/L BUN 10 (9-20) mg/dL Creatinine 0.83 (0.7-1.3) mg/dL Estim Creat Clear Calc 113 ml/min Estimated GFR > 60 (59 - ) Glucose 140 H (65-110) mg/dL Calcium 8.3 L (8.4-10.2) mg/dL Total Bilirubin 2.8 H (0.2-1.3) mg/dL AST 1040 H (17-59) U/L ALT 646 H (6-50) U/L Alkaline Phosphatase 78 (38-126) U/L Total Protein 7.0 (6.3-8.2) g/dL Albumin 4.5 (3.5-5.1) g/dL Lipase 135 (23-300) U/L Urine Opiates Screen Negative (Negative) Urine Methadone Screen Pending Ur Barbiturates Screen Negative (Negative) Ur Phencyclidine Scrn Pending Ur Amphetamine Screen Negative (Negative) U Benzodiazepines Scrn Negative (Negative) Urine Cocaine Screen Negative (Negative) U Cannabinoids Screen Negative (Negative) Ethyl Alcohol 381 H* (<10) mg/dL Discharge Plan Discharge Clinical Impression: Acute alcoholic hepatitis, Acute hypokalemia Alcohol dependence Qualifiers: Substance use status: with intoxication Complication of substance-induced condition: uncomplicated Qualified Code(s): F10.220 - Alcohol dependence with intoxication, uncomplicated Patient Disposition: Home Condition: Stable Instructions: Antibiotic Form, Abuse of Alcohol (DC), Alcohol Withdrawal (ED), Alcoholic Hepatitis (ED) Additional Instructions: Please continue to seek Patient Language: Azeri Prescriptions: New ondansetron 4 mg tablet,disintegrating 4 mg PO Q8H PRN (Reason: nausea and vomiting) Qty: 14 0RF No Action ketorolac 10 mg tablet 10 mg PO Q6H PRN (Reason: pain) Qty: 20 0RF Rx Instructions: Take with food cyclobenzaprine 10 mg tablet 10 mg PO QHS Qty: 14 0RF trazodone 50 mg tablet 50 mg PO QHS PRN (Reason: sleep) Qty: 30 3RF Follow-up/Referrals: Shaka Mcdonald DO [Primary Care Provider] -
--- OUTSIDE RECORDS SUMMARY | 2024-12-12 18:17 | XMS_ITS | Clinical Summary ---
Author Organization [facility] [employer] Address [address] [facility] [place] [address] Care Team Providers Care Medic Technician Name Role Phone Lele Delgadillo MD Primary Care Provider [phone] Source Comments [facility],non-owned Affiliates and Associated Physician Practices is amultiple site organization consisting of ambulatory clinics and hospital sitesin [place], [place], [place] and [place]. This disclosure is being madepursuant to the Care Everywhere program and may not contain all information available regarding this patient. Last updated 18.[facility] Allergies No known active allergies Medications * Be aware that medications may not be up to date on this document. Alwaysverify current medications with the patient. 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 II ASSEMBLER Temperature 36.7 C (98.1 F) 05/14/2016 2:17 PM ELECTRICAL ACCESSORIES II ASSEMBLER Respiratory Rate 16 05/14/2016 2:17 PM 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
--- OUTSIDE RECORDS SUMMARY | 2024-12-12 18:17 | XMS_ITS | Clinical Summary ---
Author Organization [facility] Address [address] [place] [phone] Care Team Providers Care Gut Snatcher Name Role Phone No, Physician Primary Care Provider [phone] Allergies No known active allergies Medications cholecalciferol [...] Tobacco: Never Tobacco Cessation:Counseling Given: Not Answered [facility] Utilities Answer Date Recorded In the past [...] often do you attend chur ch or adventism services? Never 12/24/2023 Do you belong to any clubs o r organizations such as orthodox groups, unions, fraternal or athletic groups, or [...] any time in the past 12 m [facility], were you homeless or living in a assisted (including now)? No 12/24/2023 Personal Safety Answer Date Recorded Have you ever been in or are you currently in a harmful physical or emotional relationship or is someone making you feel afraid or unsafe? 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
--- OUTSIDE RECORDS SUMMARY | 2024-12-12 18:17 | XMS_ITS | Clinical Summary ---
Author Organization [facility] Address [address] [place] [address] Care Team Providers Care Child Care Attendant Name Role Phone Unavailable Primary Care Provider [...]
--- OUTSIDE RECORDS SUMMARY | 2024-12-12 18:17 | XMS_ITS | Continuity of Care Document ---
Author Organization [facility] Address [address] [place] [address] [place] [id number] Phone Care Team Providers Care Brim Shaper Name Role Phone Jc Vadles Unavailable Unavailable Procedures Procedure Date Therapeutic Activities [...] Diagnoses Date Provider Providers Copied on Encounter [facility] [address] [address], [place], [place], [id number], tel:[phone] [place] No Information Feb-2 4 Dennis Greene. [address] [place] [address], [address], [place], [place], [facility], . tel:[phone] Referring Provider: Access Direct. [facility] [address] [address], [place], [place], [id number], tel:[phone] [place] No Information b-2 4 Jeffy Luciano. [address] [place] [address], [address] [address], . tel:[phone] Referring Provider: Access Direct. [facility] [address] [address], [place], [place], [id number], tel:[phone] [place] No Information b-1 4 Jeffy Luciano. [address] [place] [address], [address] [address], . tel:[phone] Referring Provider: Access Direct. [facility] [address] [address], [place], [place], [id number], tel:[phone] [place] No Information b1 4 Jeffy Luciano. [address] [place] [address], [address] [address], . tel:[phone] Referring Provider: Access Direct. [facility] [address] [facility] [address], [place], [place], [id number], tel:[phone] [place] No Information Feb-0 4 Jeffy Luciano. [address] [place] [address], [address], [place], [place], [facility], [place]. tel:[phone] Referring Provider: Access Direct. [facility] [address] [facility] [address], [place], [place], [id number], tel:[phone] [place] No Information 4 Jeffy Luciano. [address] [place] [address], [address], [place], [place], [facility], [place]. tel:[phone] Referring Provider: Access Direct. [facility] [address] [facility] [address], [place], [place], [id number], [place] tel:[phone] [place] No Information 4 Vicenta Muñoz . Referring Provider: Access Direct. [facility] [address] [facility] [address], [place], [place], [id number], tel:[phone] [place] No Information 4 Jeffy Luciano. [address] [place] [address], [address], [place], [place], [facility], [place]. tel:[phone] Referring Provider: Access Direct. [facility], [address] [facility] [address], [place], [place], [id number], [place] tel:[phone] [place] No Information 4 Muehl Jc. [address] [place] [address], [address], [place], [place], [facility], [place]. tel:[phone] Referring Provider: Access Direct. [facility] [address] [facility] [address], [place], [place], [id number], [place] tel:[phone] [place] No Information 4 Muehl Jc. [address] [place] [address], [address], [place], [facility], [place]. tel:[phone] Referring Provider: Access Direct. [facility] [address] [facility] [address], [place], [place], [id number], [place] tel:[phone] [place] No Information 4 Jeffy Luciano. [address] [place] [address], [address], [place], [place], [facility], . tel:[phone] Referring Provider: Access Direct. [facility] [address] [address], [place], [place], [id number], tel:[phone] [place] No Information 4 Jeffy Luciano. [address] [place] [address], [address], [place], [facility], . tel:[phone] Referring Provider: Access Direct. [facility] [address] [address], [place], [place], [id number], tel:[phone] [place] No Information 4 Dellamano Juvencio. . Referring Provider: Access Direct. [facility] [address] [address], [place], [place], [id number], tel:[phone] [place] No Information 4 Dellamano Juvencio. . Referring Provider: Access Direct. [facility] [address] [address], [place], [place], [id number], tel:[phone] [place] No Information 4 Mucarmen Greene. [address] [place] [address], [address], [place], [facility], . tel:[phone] Referring Provider: Access Direct. [facility] [address], [place], [place], [id number], tel:[phone] [place] No Information 3 Dellamano Juvencio. . Referring Provider: Access Direct. [facility] [address] [address], [place], [place], [id number], tel:[phone] [place] No Information 3 Dellamano Juvencio. . Referring Provider: Access Direct. [facility] [address], [place], [place], [id number], tel:[phone] [place] No Information 3 Delkeila Henning. . Referring Provider: Access Direct. [facility] [address], [place], [place], [id number], tel:[phone] [place] No Information 3 Dellamchristie Henning. . Referring Provider: Access Direct. [facility] [address] [address], [place], [place], [id number], tel:[phone] [place] No Information 3 Dellamchristie Henning. . Referring Provider: Access Direct. [facility] [address] [address], [place], [place], [id number], tel:[phone] [place] No Information 3 Modglin Luis. . Referring Provider: Access Direct. Family History Family Member Type Diagnosis Age At Onset No Information Payers Payer name Insurance type Covered constitution party ID Jake hernandez(s) Pawan JOHNSON 00 [...]
[2024-12-12] MEDS: SODIUM CHLORIDE 0.9% IV 1,000 ML 999 ML IV CONT (18:18)
[2024-12-12 18:38] LABS: Hematocrit 45.8 % (42.0-52.0); Hemoglobin 16.5 g/dL (14.0-18.0); Immature Granulocyte Percent A 0.3 % (0-0.5); Lymphocytes Absolute Auto 1.90 K/mm3 (0.9-3.2); Mean Corpuscular HGB Conc 36.0 g/dl (32-36); Mean Corpuscular Hemoglobin 29.8 pg (26-34); Mean Corpuscular Volume 82.7 fl (80-100); Nucleated Red Blood Cells Absolute Auto 0.000 K/mm3 (0.0-0.012); Nucleated Red Blood Cells Perc 0.0 % (0.0-0.2); Platelet Count Result 270 k/mm3 (150-375); Red Blood Count 5.54 M/mm3 (4.6-6.20); White Blood Count 7.2 K/mm3 (4.5-10.0)
[2024-12-12 18:46] LABS: Alanine Aminotransferase 646 U/L (6-50); Albumin Level 4.5 g/dL (3.5-5.1); Alkaline Phosphatase 78 U/L (38-126); Anion Gap 11 mmol/L (4-12); Bilirubin,Total 2.8 mg/dL (0.2-1.3); Blood Urea Nitrogen 10 mg/dL (9-20); Calcium 8.3 mg/dL (8.4-10.2); Carbon Dioxide 27 mmol/L (22-30); Chloride 102 mmol/L (98-107); Estimated CRCL calculation 113 ml/min; Estimated Glomerular Filt Rate > 60; Glucose 140 mg/dL (65-110); Potassium 3.2 mmol/L (3.4-5.0); Sodium 140 mmol/L (137-145); Total Protein 7.0 g/dL (6.3-8.2)
[2024-12-12 18:54] LABS: Lipase 135 U/L (23-300)
[2024-12-12 19:07] LABS: Aspartate Amino Transferase 1040 U/L (17-59)
--- NOTE | 2024-12-12 19:10 | PC.NURSE ---
Assumed care of patient after receiving bedside report from SEAN Cristobal @ [id number]
[2024-12-12 19:52] LABS: Cannabinoid Screen Urine Negative (Negative)
[2024-12-12] MEDS: ONDANSETRON HCL ODT 4 MG TABLET PO (20:18)
== END 2024-12-12 20:20 | disposition home or self-care (01) ==
PROVIDERS: Emergency Provider Student in an Organized Health Care Education/Training Program; PCP Internal Medicine
DX: K70.10 Alcoholic hepatitis without ascites (principal); F10.229 Alcohol dependence with intoxication, unspecified; Y90.8 Blood alcohol level of 240 mg/100 ml or more; E87.6 Hypokalemia; F17.290 Nicotine dependence, other tobacco product, uncomplicated
CPT/HCPCS: 36415; 80053; 80307; 82077; 83690; 85025; 96360; 96361; 99283; A9270; J7030

== ENCOUNTER 2025-01-14 11:37 | Emergency (ER) | payer OTHER, SELFPAY ==
--- NOTE | ~2025-01-14 | XR_ITS ---
EXAMINATION: XR foot LT min 3V, 01/14/2025 12:03 CDT HISTORY: LT foot pain /ball of foot/ stepped on nail 1 hour ago COMPARISON: No comparisons available. Findings: No acute fracture or malalignment. No significant degenerative changes. Soft tissues unremarkable. Impression: No acute fracture or malalignment. Reviewed, dictated and finalized at location A. Impression: No acute fracture or malalignment.
[2025-01-14 11:50] VITALS: BP 120/75; PULSE 94; RESP 16; TEMP 37.3; O2SAT 100
--- NOTE | 2025-01-14 11:50 | ED_ITS ---
HPI - Skin/Abscess/Foreign Bdy General Chief complaint: Wound/Laceration Stated complaint: Left Foot Foreign Object Time Seen by Provider: 01/14/25 11:40 Source: patient Mode of arrival: ambulatory Limitations: no limitations History of Present Illness HPI narrative: Patient is a 24-year-old male who presents with pain to left foot after stepping on a nail approximately 30 minutes prior to arrival. Patient is unsure last tetanus shot. Does report the nail was juhi. Nail removed prior to arrival. Related Data Allergies Allergy/AdvReac Type Severity Reaction Status Date / Time No Known Allergies Allergy Verified 01/14/25 11:50 Review of Systems 2 Review of Systems: All systems reviewed & are unremarkable except as noted in HPI and below Constitutional: Constitutional: Denies body ache(s), Denies chills, Denies fatigue, Denies fever(s), Denies headache(s), Denies malaise and Denies weakness Eyes: Eyes: Denies blurry vision, Denies irritation and Denies loss of vision ENT: Denies otalgia, Denies headache(s), Denies nasal discharge, Denies sinus pain and Denies sore throat Cardiovascular: Cardiovascular: Denies chest pain, Denies irregular heart rhythm and Denies dyspnea Respiratory: Respiratory: Denies dyspnea Gastrointestinal: Gastrointestinal: Denies abdominal pain, Denies melena, Denies hematochezia, Denies diarrhea, Denies nausea and Denies vomiting Musculoskeletal: Musculoskeletal: Denies back pain, Denies myalgias and Denies arthralgias Integumentary/Breasts: Skin/Breast: Denies pruritus, Denies rash and Reports wounds Neurologic: Denies headache(s), Denies loss of vision and Denies weakness Psychiatric: Psychiatric: Reports no additional psychiatric complaints Endocrine: Endocrine: Denies fatigue PMF Past Medical History Medical History BMI 27.0-27.9,adult Alcohol abuse Appendicitis Family History Family History Father Depression Hypertension Diabetes mellitus Mother Hypertension Thyroid disease Diabetes mellitus Sibling Depression Hypertension Social History Social History Smoking packs per day: 0.5 Smoking cigarettes per day: 10.0 Years smoked: 2 Smoking pack-years: 1.00 Smoking status: Current every day smoker Tobacco type: e-cigarettes/vaping Second hand tobacco smoke exposure: No Alcohol intake: current Substance use: former Substance use type: marijuana Do You Feel Safe in your Home?: Yes Lack of Transportation: No Lack of Food: Never True Current Housing: I Have Housing Concerned About Future Housing: No Difficulty Paying Gas/Electric Bills: No Difficulty Paying for Meds: No Currently Unemployed: No Education: High School Diploma/GED Difficulty w/ Childcare or Family Care: No Living arrangements: with family Occupation/Education: occupation 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 There is no relevant family history pertinent to the presenting complaint. Exam 2 Const: General: cooperative, healthy appearing, comfortable, no acute distress and well nourished Nutritional Appearance: well nourished O rientation/consciousness: patient oriented x3 Limitations: no limitations HENMT: Head: normal to inspection, normocephalic and atraumatic Ears: h earing grossly normal bilaterally and external ears normal Face/Nose/Sinus: N ormal external nose present, normal facial exam and face symmetric Face and sinus: normal facial exam and face symmetric Mouth: Yes lip normal Eyes: General: appearance normal, both eyes and all related structures A lignment and Position: alignment normal and position normal Periorbital: p eriorbital findings normal Eyelids: eyelids normal Pupils: Equal, round and reactive pupils present EOM: EOMs intact bilaterally Neck: Neck: normal visual inspection, full ROM and supple Chest: Chest palpation & inspection: normal inspection of the chest Resp: Effort & Inspection: normal respiratory effort and able to speak in complete sentences Auscultation: clear to auscultation bilaterally Cardio: Rate: regular rate Rhythm: regular rhythm Heart sounds: S1 normal heart sound present and S2 normal heart sound present GI: Inspection: normal to inspection Skin: General skin exam: normal color and no rashes or lesions noted Neuro: General: patient oriented x3 and moves all extremities Cranial nerves: Yes Equal, round and reactive pupils present Speech: normal speech Gait exam (Neuro): Normal gait present Extrem: General: normal to inspection, full ROM and no edema Left lower extremity: foot Details: normal capillary refill, tenderness Location: of the plantar foot Location: distally, toes with normal ROM, puncture wound plantar lateral distal single and vascular exam Details: dorsalis pedis pulse present and normal capillary refill; no unusual warmth and no ecchymosis Ankle/foot/toe images: 1. single puncture wound Psych: Appearance: grossly normal and well kempt Mental Status: mental status grossly normal Speech and movement: Normal speech and movement present Affect: normal affect Attitude: cooperative Thought process: Normal thought process present Course Course Emergency Course: Patient is aware of diagnosis, understands and agrees to treatment plan. Anticipatory guidance given. Patient agrees to follow-up as directed and is aware of reasons to seek care at the emergency department. Portions of this record may have been created with voice recognition software Level of Care: Express Care Visit Vital Signs Vital signs: Reviewed MDM - Skin/Abscess/Foreign Bdy MDM Narrative Medical decision making narrative: Foot was soaked and cleaned thoroughly. Tetanus shot updated. X-ray shows fracture antibiotic ointment applied antibiotic prescribed Pt well hydrated appearing, in no respiratory distress, hemodynamically stable. Recommend supportive care. The patient is stable at time of discharge the clinical impression was discussed and the patient was given the opportunity to ask questions, which were addressed as completely as possible given the information available at present. Anticipatory guidance and return to care precautions were discussed and the importance of primary care follow-up was stressed and encouraged. The patient voiced understanding of the plan, indications to return, and the need for follow-up. Exam findings show no acute concerns or changes Patient is appropriate for outpatient treatment and follow-up. Differential Diagnosis Differential diagnosis: Likely cellulitis and other (Foreign body in foot.) Medical Records Attestation: I reviewed the patient's medical records. Imaging Data Radiologist's impression: EXAMINATION: XR foot LT min 3V, 01/14/2025 12:03 CDT HISTORY: LT foot pain /ball of foot/ stepped on nail 1 hour ago COMPARISON: No comparisons available. Findings: No acute fracture or malalignment. No significant degenerative changes. Soft tissues unremarkable. Impression: No acute fracture or malalignment. Discharge Plan Discharge Clinical Impression: Foreign body foot/toe Patient Disposition: Home Condition: Stable Instructions: Diphtheria/Acellular Pertussis/Tetanus Booster Vaccine (By injection), Acute Wounds (ED) Additional Instructions: Wound dressed with topical Bacitracin and sterile gauze. Apply Bactroban after warm soaks BID. Take antibiotics as prescribed. Keep wound covered. Go to the emergency department if you have worsening redness, swelling or pus. Patient Language: Slovenian Prescriptions: New ciprofloxacin HCl 500 mg tablet 500 mg PO Q12H 7 Days Qty: 14 0RF mupirocin 2 % ointment 1 applic topical BID Qty: 15 0RF No Action ondansetron 4 mg tablet,disintegrating 4 mg PO Q8H PRN (Reason: nausea and vomiting) Qty: 14 0RF trazodone 50 mg tablet 50 mg PO QHS PRN (Reason: sleep) Qty: 30 3RF Follow-up/Referrals: Shaka Mcdonald DO [Primary Care Provider, Internal Medicine] - 3 Days Stand Alone Forms: Work/School Release IP Time of Disposition: 12:42
[2025-01-14] MEDS: TETANUS,DIPHTHERIA,AC PERTUSSIS ADULT (0.5 ML) BOOSTRIX IM (12:20)
== END 2025-01-14 12:50 | disposition home or self-care (01) ==
PROVIDERS: Emergency Provider Nurse Practitioner Family; PCP Internal Medicine
DX: S91.332A Puncture wound without foreign body, left foot, initial encounter (principal); W45.0XXA Nail entering through skin, initial encounter; Z23 Encounter for immunization; F17.290 Nicotine dependence, other tobacco product, uncomplicated
CPT/HCPCS: 73630; 90471; 90715; 99213; G0463